=== PATIENT | male | born 2000 | race Hispanic/Latino ===

== ENCOUNTER 2021-02-22 05:23 | Emergency (ER) | payer SELFPAY ==
[2021-02-22] MEDS ORDERED: METOCLOPRAMIDE 10 MG/2mL INJ ONE (06:42)
[2021-02-22] MEDS ORDERED: NA CHLORIDE 0.9% 1,000 ML ONE (06:43)
[2021-02-22] MEDS ORDERED: TETRACAINE HCL 0.5% 4ML OPTH ONE (06:43)
[2021-02-22] MEDS ORDERED: DIPHENHYDRAMINE 50 MG/ML VIAL ONE (06:43)
[2021-02-22] MEDS ORDERED: KETOROLAC 30 MG/ML INJ ONE (06:43)
[2021-02-22] MEDS ORDERED: FLUORESCEIN SODIUM 1 MG/WRAP ONE (06:43)
--- NOTE | 2021-02-22 07:05 | ER ---
Nurse's Notes [facility] Name: Bakari Mason Age: 20 yrs Sex: Male : 2000 Arrival Date: 02/22/2021 Time: 05:26 Bed 23 Private MD: Diagnosis: Headache Presentation: 02/22 05:47 Chief complaint: Patient states: that he has been having a headache and sensitivity to lh3 light 2 days ago. Pt states that "white dust" got into his eye, 2 days ago, and has been having trouble since. Pt has been trying to sleep and the head pain in the back and front of his head has gotten worse. Patient took tylenol at 1am. Pt denies trauma to head. Coronavirus screen: Vaccine status: Patient reports receiving the 2nd dose of the covid vaccine. Date July 2020. Ebola Screen: No symptoms or risks identified at this time. Initial Sepsis Screen: Does the patient meet any 2 criteria? No. Patient's initial sepsis screen is negative. Does the patient have a suspected source of infection? No. Patient's initial sepsis screen is negative. Risk Assessment: Do you want to hurt yourself or someone else? Patient reports no desire to harm self or others. Onset of symptoms was February 22, 2021. 05:47 Method Of Arrival: Ambulatory 3 05:47 Acuity: OSMIN 4 lh3 Triage Assessment: 05:51 Headache History: Denies prior headaches. General: Appears in no apparent distress. lh3 Behavior is calm, cooperative, appropriate for age. Pain: Pain level that patient reports is acceptable is 10 out of 10 on a pain scale. Pain began 2-3 days ago. Also complains of photophobia, sleeplessness. Neuro: Reports headache parietal area, frontal area, that is the "worst ever". Historical: - Allergies: 05:51 No Known Allergies; lh3 - PMHx: 06:14 None; lh3 - PSHx: 06:14 None; lh3 - Immunization history:: Client reports receiving the 2nd dose of the Covid vaccine, Date received: July 2020. - Social history:: Smoking status: Patient denies any tobacco usage or history of. Screenin:05 Abuse screen: Denies threats or abuse. Denies injuries from another. Nutritional dc2 screening: No deficits noted. Tuberculosis screening: No symptoms or risk factors identified. Never had TB. Possible symptoms: None. Fall Risk None identified. Assessment: 06:00 General: Appears uncomfortable, well groomed, well developed, Behavior is calm, dc2 cooperative. Pain: Complains of pain in frontal lobe headache and back of head pain. States is constant ache. 06:02 Neuro: Reports headache frontal area, occipital area, that is the "worst ever", dc2 photophobia in bilateral eyes since Monday after getting pollen in eyes. Right eye with some redness. Denies blurred vision dizziness. Respiratory: No deficits noted. GI: No deficits noted. EENT: Reports photophobia. Musculoskeletal: No deficits noted. Vital Signs: 05:47 BP 118 / 81; Pulse 66; Resp 18; Temp 98.2(O); Pulse Ox 100% on R/A; Weight 74.84 kg; 3 Height 5 ft. 5 in. (165.10 cm); 06:06 BP 115 / 80; Pulse 63; Resp 18; Pulse Ox 100% on R/A; Pain 8/10; dc2 06:55 BP 114 / 73; Pulse 57; Resp 16; Pulse Ox 100% on R/A; Pain 2/10; dc2 05:47 Body Mass Index 27.46 (74.84 kg, 165.10 cm) 3 [place] Coma Score: 06:08 Eye Response: spontaneous(4). Verbal Response: oriented(5). Motor Response: obeys kb commands(6). Total: 15. ED Course: 05:26 Patient arrived in ED. wm 05:51 Triage completed. 3 05:51 Arm band placed on right wrist. 3 05:55 Gabi Hinds RN is Primary Nurse. dc2 05:58 Kiki Pulido FNP-C is PHCP. kb 05:58 Michael Ayala MD is Attending Physician. kb 06:00 Patient has correct armband on for positive identification. Bed in low position. Call dc2 light in reach. Side rails up X 1. 06:05 Nurse Practitioner and/or Physician Crozer Operator to see patient. dc2 06:05 No provider procedures requiring assistance completed. dc2 06:30 Inserted saline lock: 22 gauge in right antecubital area, using aseptic technique. dc2 07:00 Report given to samantha Sun. dc2 Administered Medications: 06:34 Drug: NS 0.9% 1000 ml Route: IV; Rate: 1000 ml; Infused Over: 11 hrs; Site: right dc2 antecubital; 06:34 Drug: Ketorolac 15 mg Route: IVP; Site: right antecubital; dc2 06:56 Follow up: Response: Pain is decreased dc2 06:34 Drug: Benadryl (diphenhydrAMINE) 12.5 mg Route: IVP; Site: right antecubital; dc2 06:55 Follow up: Response: Pain is decreased dc2 06:34 Drug: Reglan (metoCLOPramide) 10 mg Route: IVP; Site: right antecubital; dc2 06:55 Follow up: Response: Pain is decreased dc2 Outcome: 07:04 Discharge ordered by MD. cook 07:29 Discharged to home ambulatory. aj2 07:29 Condition: stable 07:29 Discharge instructions given to patient, Instructed on discharge instructions, follow up and referral plans. Demonstrated understanding of instructions, follow-up care. 07:30 Patient left the ED. aj2 Signatures: Kiki Pulido, SHOE SPRAYER-C SHOE SPRAYER-CkJustina Barrientos Latisha, RN RN lh3 Caroline Haro aj2 Gabi Hinds RN RN dc2
--- NOTE | 2021-02-22 07:05 | EDPHYS ---
Physician Documentation [facility] Name: Bakari Mason Age: 20 yrs Sex: Male : 2000 Arrival Date: 02/22/2021 Time: 05:26 Bed 23 Private MD: ED Physician Michael Ayala HPI: 02/22 06:09 This 20 yrs old Male presents to ER via Ambulatory with complaints of kb Headache, Sensitivity to light. 06:09 The patient complains of pain to the forehead, left occipital area and right occipital kb area. The patient describes the headache as constant. Onset: The symptoms/episode began/occurred 4 day(s) ago. Associated signs and symptoms: Pertinent positives: nausea, Photophobia. Severity of symptoms: At its worst the pain was moderate, in the emergency department the pain is unchanged. Headache History: Denies prior headaches. The symptoms are alleviated by nothing. the symptoms are aggravated by lights. The patient has not experienced similar symptoms in the past. The patient has not recently seen a physician. Pt reports headache that started after getting white powder in eyes at work last week. . Historical: - Allergies: 05:51 No Known Allergies; lh3 - PMHx: 06:14 None; lh3 - PSHx: 06:14 None; lh3 - Immunization history:: Client reports receiving the 2nd dose of the Covid vaccine, Date received: July 2020. - Social history:: Smoking status: Patient denies any tobacco usage or history of. ROS: 06:09 Constitutional: Negative for fever, chills, and weight loss. kb 06:09 Eyes: Positive for pain, redness. 06:09 Neuro: Positive for headache, photophobia. 06:09 All other systems are negative. Exam: 06:09 Constitutional: This is a well developed, well nourished patient who is awake, alert, kb and in no acute distress. Head/Face: Normocephalic, atraumatic. Respiratory: Respirations even and unlabored. No increased work of breathing, no retractions or nasal flaring. Skin: Warm, dry with normal turgor. Normal color. MS/ Extremity: Pulses equal, no cyanosis. Neurovascular intact. Full, normal range of motion. Neuro: Awake and alert, GCS 15, oriented to person, place, time, and situation. Moves all extremities. Normal gait. Psych: Awake, alert, with orientation to person, place and time. Behavior, mood, and affect are within normal limits. 07:04 Eyes: Pupils: equal, round, and reactive to light and accomodation, Extraocular kb movements: intact throughout, Conjunctiva: normal, Corneas: are normal, abrasion, is not appreciated, foreign body, is not appreciated, a fluorescein strip employed to appreciate the findings. Vital Signs: 05:47 BP 118 / 81; Pulse 66; Resp 18; Temp 98.2(O); Pulse Ox 100% on R/A; Weight 74.84 kg; lh3 Height 5 ft. 5 in. (165.10 cm); 06:06 BP 115 / 80; Pulse 63; Resp 18; Pulse Ox 100% on R/A; Pain 8/10; dc2 06:55 BP 114 / 73; Pulse 57; Resp 16; Pulse Ox 100% on R/A; Pain 2/10; dc2 05:47 Body Mass Index 27.46 (74.84 kg, 165.10 cm) 3 [place] Coma Score: 06:08 Eye Response: spontaneous(4). Verbal Response: oriented(5). Motor Response: obeys kb commands(6). Total: 15. MDM: 05:58 Patient medically screened. kb 06:08 Data reviewed: vital signs, nurses notes. Data interpreted: Pulse oximetry: on room air kb is 100 %. Interpretation: normal. 07:04 Counseling: I had a detailed discussion with the patient and/or guardian regarding: the kb historical points, exam findings, and any diagnostic results supporting the discharge/admit diagnosis, the need for outpatient follow up, a family practitioner. Response to treatment: the patient's symptoms have resolved after treatment. 02/22 06:07 Order name: IV Start; Complete Time: 06:47 kb 02/22 06:07 Order name: Eye Tray; Complete Time: 06:47 kb 02/22 06:07 Order name: Fluoresene Opth strip; Complete Time: 06:25 kb Administered Medications: 06:34 Drug: NS 0.9% 1000 ml Route: IV; Rate: 1000 ml; Infused Over: 11 hrs; Site: right dc2 antecubital; 06:34 Drug: Ketorolac 15 mg Route: IVP; Site: right antecubital; dc2 06:56 Follow up: Response: Pain is decreased dc2 06:34 Drug: Benadryl (diphenhydrAMINE) 12.5 mg Route: IVP; Site: right antecubital; dc2 06:55 Follow up: Response: Pain is decreased dc2 06:34 Drug: Reglan (metoCLOPramide) 10 mg Route: IVP; Site: right antecubital; dc2 06:55 Follow up: Response: Pain is decreased dc2 Disposition Summary: 02/22/21 07:04 Discharge Ordered Location: Home kb Condition: Stable kb Diagnosis - Headache kb Followup: kb - With: Emergency Department - When: As needed - Reason: Worsening of condition Followup: kb - With: Private Physician - When: 2 - 3 days - Reason: Recheck today's complaints, Continuance of care, Re-evaluation by your physician Discharge Instructions: - Discharge Summary Sheet kb - General Headache Without Cause, [id number] kb Forms: - Medication Reconciliation Form kb - Thank You Letter kb - Antibiotic Education kb - Prescription Opioid Use kb Addendum: 02/25/2021 07:02 Co-signature as Attending Physician, Michael Ayala MD I agree with the assessment and r n plan of care. Attestation: The patient's history, exam findings, diagnostics, and a summary of any interventions or procedures was reviewed in detail with Kiki GRIMALDO. Signatures: Kiki Pulido, DILLAN PROTECTION ANALYST-Ckb Michael Ayala MD MD rn Hardee, Latisha, RN RN lh3 Lizet, [place] Ashley RN dc2 Corrections: (The following items were deleted from the chart) 02/22 07:04 06:09 Constitutional: This is a well developed, well nourished patient who is awake, kb alert, and in no acute distress. Head/Face: Normocephalic, atraumatic. Eyes: Pupils equal round and reactive to light, extra-ocular motions intact. Lids and lashes normal. Conjunctiva and sclera are non-icteric and not injected. Cornea within normal limits. Periorbital areas with no swelling, redness, or edema. Respiratory: Respirations even and unlabored. No increased work of breathing, no retractions or nasal flaring. Skin: Warm, dry with normal turgor. Normal color. MS/ Extremity: Pulses equal, no cyanosis. Neurovascular intact. Full, normal range of motion. Neuro: Awake and alert, GCS 15, oriented to person, place, time, and situation. Moves all extremities. Normal gait. Psych: Awake, alert, with orientation to person, place and time. Behavior, mood, and affect are within normal limits. kb
[2021-02-22 07:37] VITALS: TEMP 98.2; O2SAT 100
[2021-02-22 07:39] VITALS: BP 114/73
== END 2021-02-22 07:30 | disposition home or self-care (01) ==
LOC: ER 05:23
DX: R51.9 Headache, unspecified (principal)
CPT/HCPCS: 96374; 96375; 99283; J1200; J2765; J7030